=== PATIENT | male | born 1970 | race Caucasian/White ===

== ENCOUNTER 2020-08-20 05:21 | Day surgery (SDC) | payer BC ==
[2020-08-20] MEDS ORDERED: LACTATED RINGERS 1,000 ML ONE (06:39)
[2020-08-20] MEDS ORDERED: DEXAMETHASONE INJ 10 MG/ML VIAL ONE (07:00)
[2020-08-20] MEDS ORDERED: PROPOFOL 200 MG/20 ML VIAL IV ONE (07:00)
[2020-08-20] MEDS ORDERED: LIDOCAINE 1% 50 ML VIAL INJ ONE (07:12)
[2020-08-20] MEDS ORDERED: SODIUM CHLORIDE 0.9% 50 ML VIAL ONE ×2 (07:12→07:13)
[2020-08-20] MEDS ORDERED: HEPARIN SODIUM 100 U/ML 5 ML SYG IV ONE (07:13)
[2020-08-20] MEDS ORDERED: SODIUM BICARBONATE VIAL 50 MEQ/50 ML VIAL ONE (07:13)
[2020-08-20] MEDS ORDERED: LACTATED RINGERS 1,000 ML IVS ONE (09:40)
[2020-08-20] MEDS ORDERED: fentaNYL CITRATE INJ 50 MCG/ML 2 ML AMP ONE (10:56)
[2020-08-20] MEDS ORDERED: KETAMINE HCL 100 MG/ML VIAL ONE (10:56)
[2020-08-20] MEDS ORDERED: MIDAZOLAM INJ 2 MG/2 ML VIAL ONE (10:56)
[2020-08-20] MEDS ORDERED: SODIUM CHL 0.9% 100ML MINI-BAG 100 ML IVPB ONE (11:03)
[2020-08-20] MEDS ORDERED: ceFAZolin SODIUM 1 GM VIAL ONE (11:03)
--- NOTE | 2020-08-20 12:38 | RAD ---
EXAM DESCRIPTION: Chest,1 View CLINICAL HISTORY: 50 years Male, POST PORT PLACEMENT COMPARISON: None. TECHNIQUE: AP portable chest. FINDINGS: Heart size is prominent with normal pulmonary vascularity. Port-A-Cath on the right with tip at the SVC-right atrial junction region No consolidating infiltrate. No pulmonary mass or worrisome nodule. No pneumothorax or pleural effusion. Bones are unremarkable. IMPRESSION: No acute process is identified in the chest. Electronically signed by: Tony Elizabeth MD 08/20/2020 12:36 PM CDT
[2020-08-20 13:07] VITALS: BP 119/87; TEMP 97.4; O2SAT 99
--- NOTE | 2020-08-20 13:10 | OP ---
DATE OF PROCEDURE: 08/20/20 PREOPERATIVE DIAGNOSIS: 1. 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 POSTOPERATIVE DIAGNOSIS: 1. 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 PROCEDURE: 1. Insertion of right subclavian venous access port. SURGEON: Antoni Lam MD. HEDIS NURSE: None. ANESTHESIA: Local infiltration of 1% lidocaine with bicarb and IV sedation by Anesthesia. INDICATION: The patient is a 50-year-old male who noted a neck mass which was identified as a lymph node. 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 He has been seen by Dr. Dillon and Dr. Acevedo and is to begin chemotherapy and radiation therapy next week. The port is placed for this purpose. FINDINGS: Fluoroscopy reveals the guidewire and then the catheter in the superior vena cava. PROCEDURE: After the patient was brought to the Surgical Suite and placed in supine position, he was prepped and draped in the usual sterile manner. A surgical time-out was taken. The patient was placed in the Trendelenburg position, head is turned to the left side. The infraclavicular area was infiltrated with local anesthesia. An 18-gauge thin wall needle was introduced under the clavicle. Venous blood was accessed. The needle was removed and the 18-gauge thin wall needle was introduced and venous blood was obtained. The guidewire was introduced through the needle and the needle was removed. At this point, a towel was placed over the field and fluoroscopy was used to identify the guidewire in good position. At this point, a stab wound was made over the guidewire. A port pocket was fashioned, first with infiltration of anesthesia and then the sharp knife. Dissection was carried down to just above the chest wall using fluoroscopy. A port pocket was then formed inferiorly using electrocautery and blunt dissection. The port was introduced into the pocket and sutured in place with 2 simple sutures of 3-0 Prolene. The catheter was tunneled from the port pocket to the guidewire insertion site. It was then cut to appropriate length. A dilator introducer was introduced over the guidewire. The guidewire and dilator were removed. The catheter was then introduced through the introducer in the usual manner without difficulty. The introducer was then removed. The port was accessed with a Gustafson needle. It is aspirated without difficulty and then flushed with heparinized saline followed by heplock. The port pocket was then closed with 2 simple sutures in the subcutaneous tissue of 3-0 Vicryl and then 4-0 Vicryl subcuticular sutures, benzoin and Steri-Strips on both incisions. Sterile dressings were applied. The patient tolerated the procedure well. Estimated blood loss was less than 25 mL. All sponge, needle and instrument counts were correct. #[id number] [facility]
== END 2020-08-20 13:00 | disposition home or self-care (01) ==
LOC: AMB 05:21
PROVIDERS: ATTEND Surgery
DX: C01 Malignant neoplasm of base of tongue (principal); I10 Essential (primary) hypertension; K21.9 Gastro-esophageal reflux disease without esophagitis; Z79.899 Other long term (current) drug therapy
CPT/HCPCS: 00532; 36415; 36561; 71045; 76000; 80048; 81001; 85025; A4216; C1788; J0690; J1642; J2250; J3010; J7050; J7120